=== PATIENT | female | born 1970 | race Caucasian/White ===

== ENCOUNTER 2019-03-01 07:02 | Outpatient (CLI) | payer OTHER | END 2019-03-01 23:59 | disposition home or self-care (01) | LOC: LAB 07:02 | PROVIDERS: ATTEND Nurse Practitioner Family | DX: E78.5 Hyperlipidemia, unspecified (principal); M79.2 Neuralgia and neuritis, unspecified; L71.9 Rosacea, unspecified; M25.552 Pain in left hip; M79.674 Pain in right toe(s) | CPT/HCPCS: 36415; 80053; 80061; 82306; 83036; 85025; 85651; 86140; 86430 ==

== ENCOUNTER 2019-03-08 13:58 | Outpatient (CLI) | payer OTHER | END 2019-03-08 23:59 | disposition home or self-care (01) | LOC: CFH 13:58 | PROVIDERS: ATTEND Nurse Practitioner Family | DX: Z12.31 Encounter for screening mammogram for malignant neoplasm of breast (principal) | CPT/HCPCS: 76641; 77063; 77067 ==

== ENCOUNTER → 2019-08-21 | Outpatient (CLI) | payer OTHER ==
[2019-08-21 07:38] LABS: CHOL/HDL RATIO 3.6; LDL/HDL RATIO 2.2 (0.5-3.0)
== END | disposition home or self-care (01) ==
LOC: LAB 07:06
PROVIDERS: ATTEND Nurse Practitioner Family
DX: E78.5 Hyperlipidemia, unspecified (principal)
CPT/HCPCS: 36415; 80061

== ENCOUNTER → 2020-05-26 | Outpatient (CLI) | payer OTHER | END | disposition home or self-care (01) | LOC: CFH 08:06 | PROVIDERS: ATTEND Nurse Practitioner Family | DX: Z12.31 Encounter for screening mammogram for malignant neoplasm of breast (principal) | CPT/HCPCS: 76641; 77063; 77067 ==